=== PATIENT | female | born 1975 | race Caucasian/White ===

== ENCOUNTER 2016-04-26 14:29 | Emergency (ER) | payer SELFPAY ==
[~2016-04-26] VITALS: Ht 157.5 cm; Wt 55.0 kg
[2016-04-26 14:33] VITALS: BP 142/96; PULSE 94; RESP 23; TEMP 97.8; O2SAT 99
--- NOTE | 2016-04-26 15:31 | PD ---
HPI Chief Complaint: Psychiatric Symptoms Time Seen by Provider: 15:31 Travel History International Travel<30 days: No Contact w/Intl Traveler<30days: No Traveled to known affect area: No History of Present Illness HPI 40-year-old female brought in by her boyfriend and dropped off for psychiatric symptoms. Patient is obviously psychotic and speaking to voices in her head. Patient does admit that she is been off her meds and needs to go back on them. Patient has no obvious signs of trauma or complaints of pain with this is difficult to assess due to the patient's psychotic symptoms. Patient has no known drug allergies. Her boyfriend leaves the patient here. Patient refuses to allow us to speak to him. PFSH Past Medical History Medical History: Unable to Obtain ?: Not Social History Alcohol Use: Yes Tobacco Use: Yes Substance Use: Yes Allergies-Medications (Allergen,Severity, Reaction): Coded Allergies: No Known Allergies (Unverified , 04/26/16) Per pt & per SMA RN. Reported Meds & Prescriptions Reported Meds & Active Scripts Active Reported Aripiprazole 15 Mg Tab 15 Mg PO HS Zoloft (Sertraline HCl) 100 Mg Tab 100 Mg PO DAILY Remeron (Mirtazapine) 15 Mg Tab 15 Mg PO HS Review of Systems ROS Limitations: Psychotic General / Constitutional: No: Fever Eyes: No: Visual changes HENT: No: Headaches Cardiovascular: No: Chest Pain or Discomfort Respiratory: No: Shortness of Breath Gastrointestinal: No: Abdominal Pain Genitourinary: No: Dysuria Musculoskeletal: No: Pain Skin: No Rash Neurologic: No: Weakness Psychiatric: No: Depression Endocrine: No: Polydipsia Hematologic/Lymphatic: No: Easy Bruising Physical Exam Exam Limitations: Psychotic Narrative Patient seen in J pod. She is sitting on the floor talking to herself and crying. She is speaking nonsense and does not answer questions directly. She has no obvious signs of trauma or deformity. Exam is very limited due to the patient's altered mental status. Data Data Last Documented VS Vital Signs Date Time Temp Pulse Resp B/P Pulse Ox O2 Delivery O2 Flow Rate FiO2 04/26/16 22:29 97.6 68 18 130/67 99 Room Air Orders Complete Blood Count With Diff (04/26/16 15:29) Comprehensive Metabolic Panel (04/26/16 15:29) Urinalysis - C+S If Indicated (04/26/16 15:29) Ed Urine Pregnancytest Poc (04/26/16 15:29) Psych Screen (04/26/16 15:29) Drug Screen, Random Urine (04/26/16 15:29) Alcohol (Ethanol) (04/26/16 15:29) Lorazepam Inj (Ativan Inj) (04/26/16 15:45) Lorazepam Inj (Ativan Inj) (04/26/16 16:00) Diet Regular Basic (04/26/16 Dinner) Olanzapine Inj (Zyprexa Inj) (04/26/16 18:00) Diphenhydramine Inj (Benadryl Inj) (04/26/16 17:00) Labs Laboratory Tests Test 04/26/16 04/26/16 17:05 17:07 Urine Color LIGHT-YELLOW Urine Turbidity HAZY Urine pH 6.0 Urine Specific [place] 1.002 Urine Protein NEG mg/dL Urine Glucose (UA) NEG mg/dL Urine Ketones NEG mg/dL Urine Occult Blood NEG Urine Nitrite NEG Urine Bilirubin NEG Urine Urobilinogen LESS THAN 2.0 MG/DL Urine Leukocyte Esterase NEG Urine WBC 2 /hpf Microscopic Urinalysis Comment CULT NOT INDICATED Urine Opiates Screen NEG Urine Barbiturates Screen NEG Urine Amphetamines Screen POS Urine Benzodiazepines Screen NEG Urine Cocaine Screen NEG Urine Cannabinoids Screen NEG White Blood Count 6.3 TH/MM3 Red Blood Count 4.54 MIL/MM3 Hemoglobin 13.4 GM/DL Hematocrit 39.2 % Mean Corpuscular Volume 86.5 FL Mean Corpuscular Hemoglobin 29.6 PG Mean Corpuscular Hemoglobin 34.2 % Concent Red Cell Distribution Width 13.8 % Platelet Count 254 TH/MM3 Mean Platelet Volume 8.4 FL Neutrophils (%) (Auto) 53.7 % Lymphocytes (%) (Auto) 30.3 % Monocytes (%) (Auto) 14.1 % Eosinophils (%) (Auto) 0.6 % Basophils (%) (Auto) 1.3 % Neutrophils # (Auto) 3.4 TH/MM3 Lymphocytes # (Auto) 1.9 TH/MM3 Monocytes # (Auto) 0.9 TH/MM3 Eosinophils # (Auto) 0.0 TH/MM3 Basophils # (Auto) 0.1 TH/MM3 CBC Comment DIFF FINAL Differential Comment Sodium Level 139 MEQ/L Potassium Level 3.5 MEQ/L Chloride Level 104 MEQ/L Carbon Dioxide Level 24.5 MEQ/L Anion Gap 11 MEQ/L Blood Urea Nitrogen 12 MG/DL Creatinine 0.78 MG/DL Estimat Glomerular Filtration 81 ML/MIN Rate Random Glucose 90 MG/DL Calcium Level 8.9 MG/DL Total Bilirubin 0.4 MG/DL Aspartate Amino Transf 35 U/L (AST/SGOT) Alanine Aminotransferase 154 U/L (ALT/SGPT) Alkaline Phosphatase 106 U/L Total Protein 8.1 GM/DL Albumin 3.7 GM/DL Ethyl Alcohol Level LESS THAN 3 MG/DL MDM Medical Decision Making Medical Screen Exam Complete: Yes Emergency Medical Condition: Yes Differential Diagnosis Psychosis. Depression. Need for medical clearance for psychiatric admission. Narrative Course Patient appears medically stable at time of exam. Psychiatric labs ordered including CBC, CMP, urinalysis, urine test, urine drug screen, and EtOH level. Patient is given 2 mg lorazepam IM. Labs are unremarkable except for Positive Amphetamines in the Urine. Patient Medically Cleared. Diagnosis Primary Impression: Substance induced mood disorder Additional Impression: Medical clearance for psychiatric admission Condition: Stable Jose Alfredo Arroyo Apr 26, 2016 15:31
[2016-04-26] MEDS ORDERED: LORazepam 2 MG/ML VIAL IV PUSH ONE (15:45)
[2016-04-26] MEDS ORDERED: LORazepam 2 MG/ML VIAL IM ONE (16:00)
[2016-04-26] MEDS ORDERED: REME15TA PO (16:20)
[2016-04-26] MEDS ORDERED: ZOLO100T PO (16:21)
[2016-04-26] MEDS ORDERED: ARIP1TAB13 PO (16:22)
[2016-04-26 16:25] VITALS: BP 138/87; PULSE 80; RESP 18; TEMP 98.7; O2SAT 98
[2016-04-26] MEDS ORDERED: diphenhydrAMINE HCL 50 MG/ML VIAL IM PRN (17:00)
[2016-04-26 17:33] LABS: AUTOMATED NEUTROPHIL # 3.4 TH/MM3 (1.8-7.7); BASOPHIL # 0.1 TH/MM3 (0-0.2); BASOPHIL % 1.3 % (0.0-2.0); EOSINOPHIL % 0.6 % (0.0-4.0); HEMATOCRIT 39.2 % (35.0-46.0); HEMO FLAGS DIFF FINAL; LYMPH % 30.3 % (9.0-44.0); LYMPHOCYTE # 1.9 TH/MM3 (1.0-4.8); MEAN CELL VOLUME 86.5 FL (80.0-100.0); MEAN CORPUSCULAR HEMOGLOBIN 29.6 PG (27.0-34.0); MEAN CORPUSCULAR HGB CONC 34.2 % (32.0-36.0); MONO % 14.1 % (0.0-8.0); NEUT % 53.7 % (16.0-70.0); PLATELET COUNT 254 TH/MM3 (150-450); RED BLOOD COUNT 4.54 MIL/MM3 (4.00-5.30); RED CELL DISTRIBUTION WIDTH 13.8 % (11.6-17.2); WHITE BLOOD COUNT 6.3 TH/MM3 (4.0-11.0)
[2016-04-26 17:34] LABS: BLOOD, URINE NEG (NEG); GLUCOSE,URINE NEG (NEG); KETONE, URINE NEG (NEG); NITRITE,URINE NEG (NEG); URINE COLOR LIGHT-YELLOW (YELLW/STRAW)
[2016-04-26 17:35] LABS: COMMENT (UR) CULT NOT INDICATED; CULTURE IF INDICATED CULT NOT INDICATED
[2016-04-26 17:44] LABS: AMPHETAMINE, URINE POS (NEG); BARBITURATES, URINE NEG (NEG); COCAINE, URINE NEG (NEG)
[2016-04-26 17:48] LABS: ALT (GPT) 154 U/L (10-53); ANION GAP 11 MEQ/L (5-15); AST (GOT) 35 U/L (15-37); BICARBONATE 24.5 MEQ/L (21.0-32.0); BLOOD UREA NITROGEN 12 MG/DL (7-18); CHLORIDE 104 MEQ/L (98-107); GLOMERULAR FILTRATION RATE 81 ML/MIN (>89); POTASSIUM 3.5 MEQ/L (3.5-5.1); SODIUM (NA) 139 MEQ/L (136-145)
[2016-04-26 17:50] LABS: ALKALINE PHOSPHATASE 106 U/L (45-117); TOTAL BILIRUBIN ADULT 0.4 MG/DL (0.2-1.0)
[2016-04-26] MEDS ORDERED: OLANZapine IM 10 MG VIAL IM ONE (18:00)
[2016-04-26 22:29] VITALS: BP 130/67; PULSE 68; RESP 18; TEMP 97.6; O2SAT 99
== END 2016-04-27 00:59 ==
LOC: NEPJ 14:29
DX: F19.94 Other psychoactive substance use, unspecified with psychoactive substance-induced mood disorder (principal); Z72.0 Tobacco use; F10.10 Alcohol abuse, uncomplicated
CPT/HCPCS: 80053; 80307; 80320; 81001; 84703; 85025; 96372; 99284; J2060

== ENCOUNTER 2017-04-20 13:39 | Emergency (ER) | payer OTHER ==
[~2017-04-20 13:39] MED LIST: ARIP1TAB13 PO; REME15TA PO; ZOLO100T PO
[2017-04-20 13:42] VITALS: BP 142/88; PULSE 85; RESP 14; TEMP 97.6; O2SAT 99
--- NOTE | 2017-04-20 15:33 | PD ---
HPI Chief Complaint: Psychiatric Symptoms Time Seen by Provider: 15:30 Travel History International Travel<30 days: No Contact w/Intl Traveler<30days: No Traveled to known affect area: No History of Present Illness HPI Old female presents emergency department complaining of bilateral ear pain right greater than left. Patient states that she has implants in both ears for the past 3 years with one talking to her and the other one recording everything she says. She is convinced she has foreign bodies in both ears and has pain in the right ear. She was seen in [facility] week ago and given some antibiotics. Patient denies fever, chills, or other symptoms. She has decreased hearing in the right ear. She has no known drug allergies. PFSH Past Medical History Bipolar Disorder: Yes Diminished Hearing: No GERD: Yes (Hx per SMA RN.) Pancreatitis: Yes (Hx per SMA RN. ) Menopausal: No Para: 3 Past Surgical History Abdominal Surgery: Yes (cyst removed from pancrease) Cholecystectomy: Yes Social History Alcohol Use: No Tobacco Use: Yes Substance Use: Yes (meth) Allergies-Medications (Allergen,Severity, Reaction): Coded Allergies: No Known Allergies (Unverified , 04/26/16) Per pt & per SMA RN. Reported Meds & Prescriptions Reported Meds & Active Scripts Active Cvuzeymf-Qzoxbdqtw-IK Otic Drops (Neomycin/Polymyxin/Hydrocortisone) 1 % Soln 4 Drop EACH EAR QID Reported Aripiprazole 15 Mg Tab 15 Mg PO HS Zoloft (Sertraline HCl) 100 Mg Tab 100 Mg PO DAILY Remeron (Mirtazapine) 15 Mg Tab 15 Mg PO HS Review of Systems Except as stated in HPI: all other systems reviewed are Neg General / Constitutional: No: Fever, Chills Eyes: No: Visual changes HENT: No: Headaches Cardiovascular: No: Chest Pain or Discomfort Respiratory: No: Shortness of Breath Gastrointestinal: No: Abdominal Pain Genitourinary: No: Dysuria Musculoskeletal: No: Pain Skin: No Rash Neurologic: No: Weakness Psychiatric: Positive: Substance Abuse, No: Anxiety, Depression, Suicidal Ideations, Homicidal Ideation (History of) Endocrine: No: Polydipsia Hematologic/Lymphatic: No: Easy Bruising Physical Exam Narrative GENERAL: Patient appears in mild to moderate distress. SKIN: Warm and dry. Normal color. Normal turgor HEAD: Atraumatic. Normocephalic. EYES: Pupils equal and round. No scleral icterus. No injection or drainage. ENT: No nasal bleeding or discharge. Mucous membranes pink and moist. Right external auditory canal is swollen, but not significantly erythematous. There is no significant drainage. Patient has tenderness with movement of the auricle. Left otitis externa is not as swollen but coating mixer tender, and TM is dull but not injected. NECK: Trachea midline. Supple and nontender CARDIOVASCULAR: Regular rate and rhythm. RESPIRATORY: No accessory muscle use. Clear to auscultation. Breath sounds equal bilaterally. MUSCULOSKELETAL: Extremities without clubbing, cyanosis, or edema. No obvious deformities. NEUROLOGICAL: Awake and alert. No obvious cranial nerve deficits. Motor grossly within normal limits. Five out of 5 muscle strength in the arms and legs. Normal speech. PSYCHIATRIC: Appropriate mood and affect; insight and judgment normal. Data Data Last Documented VS Vital Signs Date Time Temp Pulse Resp B/P (MAP) Pulse Ox O2 Delivery O2 Flow Rate FiO2 04/20/17 16:36 80 04/20/17 13:42 97.6 14 142/88 (106) 99 Orders Orders Skull, Routine (Min 4vws) (04/20/17 ) Ketorolac Inj (Toradol Inj) (04/20/17 16:00) Mqhngggh-Ltldimow-Va Otic Susp (Cortispo (04/20/17 16:30) Ed Discharge Order (04/20/17 16:41) [facility] [place] Medical Decision Making Medical Screen Exam Complete: Yes Emergency Medical Condition: Yes Medical Record Reviewed: Yes Differential Diagnosis Ear pain. Possible foreign body. Otitis externa. Psychosis. Auditory hallucination. Narrative Course X-rays of the ears are obtained. X-rays showed the patient with no obvious foreign body or implant seen. Otic drops are ordered to be placed in the ears every 6 hours. Patient refuses to believe that she has nothing in her ears, and is reluctant to admit to any type of auditory hallucination. Patient became very upset and wanted to leave and threatened to mai the hospital. Patient requests a second opinion. Patient was discussed with Dr. Roe, who attempted to see the patient who demanded to leave. Please see her note. Diagnosis Primary Impression: Otitis externa Qualified Codes: H60.313 - Diffuse otitis externa, bilateral Additional Impression: Verbal auditory hallucinations Referrals: [facility] Patient Instructions: General Instructions Additional Instructions: X-rays showed the patient with no obvious foreign body or implant seen. Otic drops are ordered to be placed in the ears every 6 hours. Med/Other Pt SpecificInfo: Prescription(s) given Scripts Lhdzavsg-Ahprnaorv-FI Otic Drops (Fisqwgnf-Ewrdugdkd-[place] Otic Drops) 1 % Soln 4 DROP EACH EAR QID for Infection, #1 BOTTLE 0 Refills Prov: Sue Roe MD 04/20/17 Disposition: 01 DISCHARGE HOME Condition: Stable Jose Alfredo Arroyo Apr 20, 2017 15:33
[2017-04-20] MEDS ORDERED: KETOROLAC TROMETHAMINE 60 MG/2 ML (IM) VIAL IM ONE (16:00)
--- NOTE | 2017-04-20 16:09 | RADRPT ---
EXAM DATE/TIME: 04/20/2017 15:49 [facility] COMPARISON: No previous studies available for comparison. INDICATIONS : Patient states that three years ago, unbeknownst to her, someone implanted micro recorders in each ea r, looking for foreign bodies. MEDICAL HISTORY : None. SURGICAL HISTORY : None. ENCOUNTER: Initial ACUITY: >1 year PAIN SCORE: 10/10 LOCATION: Bilateral cranial FINDINGS: No definite fractures, or dislocations are identified. No definite lytic or sclerotic lesion is seen . CONCLUSION: Unremarkable study. Gus Mason MD on April 20, 2017 at 16:07 Board Certified Radiologist. This report was verified electronically.
[2017-04-20] MEDS ORDERED: NEOMYCIN/POLYMYXIN/HYDROCORT OTIC SUSP 10 ML BTL EACH EAR ONE (16:30)
[2017-04-20] MEDS ORDERED: CORTI10A EACH EAR (16:40)
--- NOTE | 2017-04-20 16:43 | PD ---
Data Data Last Documented VS Vital Signs Date Time Temp Pulse Resp B/P (MAP) Pulse Ox O2 Delivery O2 Flow Rate FiO2 04/20/17 16:36 80 04/20/17 13:42 97.6 14 142/88 (106) 99 Orders Orders Skull, Routine (Min 4vws) (04/20/17 ) Ketorolac Inj (Toradol Inj) (04/20/17 16:00) Qymwntmk-Zjztkxjb-Ps Otic Susp (Cortispo (04/20/17 16:30) MDM Supervised Visit with MARGRET: Yes Narrative Course The history, exam, and medical decision-making in the associated midlevel provider note were completed with my assistance. I reviewed and agree with the findings presented. I attest that I had a kyxk-ze-jssd encounter with the patient on the same day, and personally performed and documented my assessment and findings in the medical record. *My assessment and Findings: This is a 41-year-old female who presents to the emergency department reporting that she has implants in her ears that have been there for 3 years. 1 of the implants talks to her. She denies any suicidal or homicidal ideation. She is requesting removal of the foreign body from her ears. The patient prior history has a history of methamphetamine abuse. Evaluation was made of her ears. She does have some edema consistent with otitis externa which may be from the patient picking at her ear. Patient became very upset when she found that we were not going to remove the foreign body from her ear. She got angry and left the emergency department. Our impression was that she did not meet Meza act criteria. She was able to articulate reasonable answers to questions and able to articulate her medical decision making and is not a harm to herself or others. She also was with a friend when she left. Diagnosis Primary Impression: Otitis externa Qualified Codes: H60.313 - Diffuse otitis externa, bilateral Additional Impression: Verbal auditory hallucinations Referrals: [facility] Patient Instructions: General Instructions Additional Instruction: X-rays showed the patient with no obvious foreign body or implant seen. Otic drops are ordered to be placed in the ears every 6 hours. Disposition: 01 DISCHARGE HOME Condition: Stable Sue Roe MD Apr 20, 2017 16:43
== END 2017-04-20 17:02 | disposition home or self-care (01) ==
LOC: NEPD 13:39
DX: H60.93 Unspecified otitis externa, bilateral (principal); R44.0 Auditory hallucinations; F15.10 Other stimulant abuse, uncomplicated; F31.9 Bipolar disorder, unspecified; K21.9 Gastro-esophageal reflux disease without esophagitis; Z87.19 Personal history of other diseases of the digestive system; Z79.899 Other long term (current) drug therapy; Z72.0 Tobacco use
CPT/HCPCS: 70260; 96372; 99283; J1885